=== PATIENT | female | born 1995 | race Caucasian/White ===

== ENCOUNTER 2018-01-17 11:10 | Emergency (ER) | payer MEDICAID ==
[~2018-01-17] VITALS: Ht 157.5 cm; Wt 56.2 kg
[2018-01-17 11:30] VITALS: PULSE 82
[2018-01-17 11:35] VITALS: PULSE 83
[2018-01-17 11:40] VITALS: PULSE 84
[2018-01-17 11:45] VITALS: PULSE 82
[2018-01-17 11:50] VITALS: PULSE 84
[2018-01-17 11:55] VITALS: PULSE 81
--- NOTE | 2018-01-17 12:14 | PD ---
HPI Chief Complaint decreased movement Date Seen: Jan 17, 2018 Time Seen: 12:00 Travel History International Travel<30 Days: No Contact w/Intl Traveler<30Days: No Known Affected Area: No History of Present Illness HPI Ms. Soliman is a 22-year-old year old at 34/0 weeks gestation with the past medical history of depression presenting to the OB ED today due to decreased movement. She gets her care at the health department in [place]. She states that for the past 3 days she has not felt the baby move as much. She has tried jumping and sugary drinks to no avail. However, when she was driving to the hospital and when she arrived at the OB ED she has felt the baby move a lot. No vaginal bleeding, no contractions, no dysuria, no chest pain, no shortness of breath, no bilateral calf pain. She is experiencing nausea. Weeks Gestation: 34 Para: 0 : 1 History Past Medical History Narrative Medical Asthma Major depressive disorder-has a history of cutting (self-harm), but last cut a year ago. Obstetric History Obstetric History Past Surgical History Surgical History: No Previous Surgery Family History Narrative Family History Mother-Graves' disease Sister with diabetes Father-unknown medical history Social History Narrative Social History Lives with her grandmother Recently moved to [place] from [place] Is a student at [employer] Denies alcohol or illicit drug use Quit cigarettes when she found out she was Alcohol Use: No Tobacco Use: No Substance Abuse: No Allergies-Medications (Allergen,Severity, Reaction): Coded Allergies: penicillin G (Verified Allergy, Unknown, 01/17/18) WAS GIVEN ALLERGY TEST WHICH RESULTED IN REACTION TO PEN g Narrative Medication Fluoxetine 10 mg daily Review of Systems General / Constitutional: No: Fever, Chills Eyes: No: Blurred Vision HENT: No: Headaches Cardiovascular: No: Chest Pain or Discomfort Respiratory: No: Short of Breath Gastrointestinal: Nausea, No: Vomiting Genitourinary: No: Dysuria Musculoskeletal: No: Weakness Skin: No Rash Physical Exam Vital Signs Date Time Temp Pulse Resp B/P (MAP) Pulse Ox O2 Delivery O2 Flow Rate FiO2 01/17/18 11:45 82 01/17/18 11:35 83 01/17/18 11:30 82 Narrative GENERAL: Well-nourished, well-developed patient. SKIN: Warm and dry. Numerous horizontal scars on bilateral forearms. HEAD: Normocephalic and atraumatic. EYES: No scleral icterus. No injection or drainage. ENT: No nasal drainage noted. Mucous membranes pink. Airway patent. NECK: Supple, trachea midline. No JVD. CARDIOVASCULAR: Regular rate and rhythm without murmurs, gallops, or rubs. RESPIRATORY: Breath sounds equal bilaterally. No accessory muscle use. BREASTS: Bilateral exam showed no masses , no retractions, no nipple discharge. ABDOMEN/GI: Abdomen soft, non-tender, bowel sounds present, no rebound, no guarding Gravid to 34 weeks size FHT's: Category: 1 Baseline: 130s Reactive: yes Variability: moderate Decels: none EXTREMITIES: No cyanosis or edema. BACK: Nontender without obvious deformity. No CVA tenderness. NEUROLOGICAL: Awake and alert. Motor and sensory grossly within normal limits. Five out of 5 muscle strength in all muscle groups. Normal speech. Data Data Vital Signs Reviewed: Yes Orders Orders Vital Signs (Adult) .ON ADMISSION (01/17/18 11:47) ^ Labor Status (01/17/18 11:47) ^ Non Stress Test (01/17/18 11:47) ^ Hydration (01/17/18 11:47) MDM Plan 22-year-old at 34/0 weeks gestation presenting due to decreased movement Issue has now resolved FHT shows category 1 tracing, reassuring -Advised patient about kick counts -Advised patient to return to ED if any further issues Diagnosis Diagnosis: Primary Impression: 34 weeks gestation of Disposition: DISCHARGE HOME Condition: Stable Lorri Fuentes MD R1 Jan 17, 2018 12:14
== END 2018-01-17 13:02 | disposition home or self-care (01) ==
LOC: HOBED 11:10
DX: O36.8130 Decreased fetal movements, third trimester, not applicable or unspecified (principal); Z3A.34 34 weeks gestation of pregnancy
CPT/HCPCS: 59025

== ENCOUNTER 2018-02-23 10:38 | Emergency (ER) | payer MEDICAID ==
[~2018-02-23] VITALS: Ht 160 cm; Wt 59.0 kg
[2018-02-23] MEDS ORDERED: SYMB80AE INH (11:01)
--- NOTE | 2018-02-23 11:58 | PD ---
HPI Chief Complaint Contractions Date Seen: Feb 23, 2018 Time Seen: 11:55 Travel History International Travel<30 Days: No Contact w/Intl Traveler<30Days: No Known Affected Area: No History of Present Illness HPI 22-year-old who is at 39 weeks 2 days comes in complaining of irregular occasional contractions. She states that they are mild to been occurring since early this morning and although they are noticeable they are not painful and not associated with any vaginal discharge or vaginal bleeding. Other than asthma she has no other complications and has been going weekly to her OB provider with a negative group B strep. No other issues during her . Weeks Gestation: 39 Para: 0 : 1 History Past Medical History Narrative Medical Asthma stable on medication Past Surgical History Surgical History: No Previous Surgery Family History Family History: Negative Social History Alcohol Use: No Tobacco Use: No Substance Abuse: No Allergies-Medications (Allergen,Severity, Reaction): Coded Allergies: penicillin G (Verified Allergy, Unknown, 01/17/18) WAS GIVEN ALLERGY TEST WHICH RESULTED IN REACTION TO PEN g Home Meds Reported Medications Budesonide-Formoterol Inh (Symbicort Inh) 80-4.5 Mcg/Act Aero, 1 PUFF INH Q12HR for Asthma Management, #1 INHALER 0 Refills 02/23/18 Review of Systems Except as stated in HPI: all other systems reviewed are Neg Physical Exam Narrative GENERAL: Well-nourished, well-developed patient. SKIN: Warm and dry. HEAD: Normocephalic and atraumatic. EYES: No scleral icterus. No injection or drainage. ENT: No nasal drainage noted. Mucous membranes pink. Airway patent. NECK: Supple, trachea midline. No JVD. CARDIOVASCULAR: Regular rate and rhythm without murmurs, gallops, or rubs. RESPIRATORY: Breath sounds equal bilaterally. No accessory muscle use. ABDOMEN/GI: Abdomen soft, non-tender, bowel sounds present, no rebound, no guarding Gravid to [36-] weeks size Fundal Height: [-] GENITOURINARY: External Genitalia: intact and normal in appearance BUS glands: [-] Normal Cervix: [-] Posterior Dilatation: [-] 1 Effacement: [-] 70 Station: [-] -1 Presentation: [-] Vertex Membranes: [intact or ruptured] intact Uterine Contractions: [-] Background irritability FHT's: Category: [-] 1 Baseline: [-] 140 Reactive: [-] Moderate Variability: [-] Moderate Decels: [-] Absent EXTREMITIES: No cyanosis or edema. BACK: Nontender without obvious deformity. No CVA tenderness. NEUROLOGICAL: Awake and alert. Motor and sensory grossly within normal limits. Five out of 5 muscle strength in all muscle groups. Normal speech. Data Data Vital Signs Reviewed: Yes Group B Strep: Negative MDM Medical Record Reviewed: Yes Plan 22-year-old at term gestation, not in labor with some uterine irritability without contractions Follow up with OB provider as scheduled next week Diagnosis Diagnosis: Primary Impression: 39 weeks gestation of Additional Impressions: Asthma complicating , antepartum False labor after 37 weeks of gestation without delivery Disposition: 01 DISCHARGE HOME Kaela Streeter MD Feb 23, 2018 11:58
== END 2018-02-23 12:13 | disposition home or self-care (01) ==
LOC: HOBED 10:38
DX: O47.1 False labor at or after 37 completed weeks of gestation (principal); O99.513 Diseases of the respiratory system complicating pregnancy, third trimester; J45.909 Unspecified asthma, uncomplicated; Z3A.39 39 weeks gestation of pregnancy
CPT/HCPCS: 59025

== ENCOUNTER 2018-02-23 21:57 | Emergency (ER) | payer MEDICAID ==
[~2018-02-23 21:57] MED LIST: SYMB80AE INH
--- NOTE | 2018-02-23 22:40 | PD ---
HPI Chief Complaint Vaginal bleeding Date Seen: Feb 23, 2018 Time Seen: 22:33 Travel History International Travel<30 Days: No Contact w/Intl Traveler<30Days: No Known Affected Area: No History of Present Illness HPI 22-year-old who is at 39-40 weeks gestation comes in complaining of vaginal bleeding. She was here earlier today with irregular contractions and cervical examination was done and she was a centimeter. After the exam patient states that she continued to have some vaginal bleeding and passed "chunks of tissue". Patient has been quite stressed as after she returned home her grandmother had a massive heart attack and they took her to the emergency room at [facility] where the patient had quite a bit of anxiety and copious crying episodes. She continued to have some irregular contractions but has had normal movement. Weeks Gestation: 39 Para: 0 : 1 History Past Medical History Narrative Medical Asthma Past Surgical History Surgical History: No Previous Surgery Family History Family History: Negative Social History Alcohol Use: No Tobacco Use: No Substance Abuse: No Allergies-Medications (Allergen,Severity, Reaction): Coded Allergies: penicillin G (Verified Allergy, Unknown, 01/17/18) WAS GIVEN ALLERGY TEST WHICH RESULTED IN REACTION TO PEN g Home Meds Reported Medications Budesonide-Formoterol Inh (Symbicort Inh) 80-4.5 Mcg/Act Aero, 1 PUFF INH Q12HR for Asthma Management, #1 INHALER 0 Refills 02/23/18 Review of Systems Except as stated in HPI: all other systems reviewed are Neg Physical Exam Narrative GENERAL: Well-nourished, well-developed patient. SKIN: Warm and dry. HEAD: Normocephalic and atraumatic. EYES: No scleral icterus. No injection or drainage. ENT: No nasal drainage noted. Mucous membranes pink. Airway patent. NECK: Supple, trachea midline. No JVD.. ABDOMEN/GI: Abdomen soft, non-tender, bowel sounds present, no rebound, no guarding Gravid to [37-] weeks size Fundal Height: [-] GENITOURINARY: Speculum exam was performed with some brown discharge noted combined with mucus. No active bleeding was noticeable. Patient states that this is the discharge that she is describing is bloody External Genitalia: intact and normal in appearance BUS glands: [-Normal] Cervix: [-Posterior] Dilatation: [-1] Effacement: [Thick-] Station: [High-] Presentation: [-Vertex] Membranes: [intact or ruptured] intact Uterine Contractions: [-] Irregular with background irritability FHT's: Category: [-] 1 Baseline: [-] 140 Reactive: [-] Moderate Variability: [-] Moderate Decels: [-] Absent EXTREMITIES: No cyanosis or edema. BACK: Nontender without obvious deformity. No CVA tenderness. NEUROLOGICAL: Awake and alert. Motor and sensory grossly within normal limits. Five out of 5 muscle strength in all muscle groups. Normal speech. Data Data Vital Signs Reviewed: Yes [facility] Medical Record Reviewed: Yes Plan 22-year-old at 39 weeks gestation Patient is not in labor and we discussed vaginal spotting and brown discharge that is associated with cervical exams No active bleeding is noted and cervix is unchanged from her previous exam earlier today Discharge home with follow-up to OB provider Diagnosis Diagnosis: Primary Impression: 39 weeks gestation of Additional Impression: Irregular uterine contractions Disposition: DISCHARGE HOME Kaela Streeter MD Feb 23, 2018 22:40
== END 2018-02-23 22:44 | disposition home or self-care (01) ==
LOC: HOBED 21:57
DX: O47.1 False labor at or after 37 completed weeks of gestation (principal); O46.93 Antepartum hemorrhage, unspecified, third trimester; Z3A.39 39 weeks gestation of pregnancy
CPT/HCPCS: 59025

== ENCOUNTER 2018-02-24 09:48 | Emergency (ER) | payer MEDICAID ==
--- NOTE | 2018-02-24 10:41 | PD ---
HPI Chief Complaint Bloody mucus discharge Date Seen: Feb 24, 2018 Time Seen: 10:33 Travel History International Travel<30 Days: No Contact w/Intl Traveler<30Days: No Known Affected Area: No History of Present Illness HPI Primigravida at 39+ weeks gestation who returns to the ED for continued bloody mucus discharge. She denies leakage of fluid. She reports good movement. She reports no increase in contraction intensity. Allergies-Medications (Allergen,Severity, Reaction): Coded Allergies: penicillin G (Verified Allergy, Unknown, 02/23/18) WAS GIVEN ALLERGY TEST WHICH RESULTED IN REACTION TO PEN g Home Meds Reported Medications Budesonide-Formoterol Inh (Symbicort Inh) 80-4.5 Mcg/Act Aero, 1 PUFF INH Q12HR for Asthma Management, #1 INHALER 0 Refills 02/23/18 Physical Exam Narrative GENERAL: Well-nourished, well-developed patient. SKIN: Warm and dry. HEAD: Normocephalic and atraumatic. EYES: No scleral icterus. No injection or drainage. ENT: No nasal drainage noted. Mucous membranes pink. Airway patent. NECK: Supple, trachea midline. No JVD. ABDOMEN/GI: Abdomen soft, non-tender, bowel sounds present, no rebound, no guarding GENITOURINARY: External Genitalia: intact and normal in appearance BUS glands: [Brown mucousy discharge without bright red bleeding in the vagina-] Cervix: [-] Dilatation: [1-] Effacement: [60-] Station: [--02] Presentation: [-] Membranes: [intact ] Uterine Contractions: [-irreg] FHT's: Category: [-1] Baseline: [-] Reactive: [-] Variability: [-] Decels: [-] EXTREMITIES: No cyanosis or edema. BACK: Nontender without obvious deformity. No CVA tenderness. NEUROLOGICAL: Awake and alert. Motor and sensory grossly within normal limits. Five out of 5 muscle strength in all muscle groups. Normal speech. Data Data Vital Signs Reviewed: Yes MDM Medical Record Reviewed: Yes Narrative Course / MDM Assessment: Bloody show associated with mild uterine irritability, category 1 heart rate Plan: Patient was educated that this was likely a normal transition in the stage of her . Precautions were reviewed for return. Diagnosis Diagnosis: Primary Impression: 39 weeks gestation of Additional Impression: Irregular uterine contractions Disposition: 01 DISCHARGE HOME Condition: Good Timbo Mayer MD Feb 24, 2018 10:41
== END 2018-02-24 10:48 | disposition home or self-care (01) ==
LOC: HOBED 09:48
DX: N85.8 Other specified noninflammatory disorders of uterus (principal); O26.93 Pregnancy related conditions, unspecified, third trimester; Z3A.39 39 weeks gestation of pregnancy
CPT/HCPCS: 59025

== ENCOUNTER → 2018-02-25 | Outpatient (CLI) | payer MEDICAID ==
[~2018-02-25] MED LIST changes: +IBUP-232 PO
--- NOTE | 2018-02-26 11:08 | RSPPFT ---
DATE OF PROCEDURE: 02/25/18 COMMENTS: Spirometry with FVC of 3.68, FEV1 of 3.1, FEV1/FVC ratio at 80%. Slow vital capacity is 100% of predicted. TLC is 95%. Diffusion capacity is normal. IMPRESSION: 1. No evidence of airways obstruction. 2. No evidence of airways restriction. 3. Normal diffusion capacity.
== END ==
LOC: HRSP 11:01
PROVIDERS: ATTEND Internal Medicine Sleep Medicine
DX: R06.89 Other abnormalities of breathing (principal)
CPT/HCPCS: 94060; 94726; 94729

== ENCOUNTER 2018-02-26 19:35 | Inpatient (IN) | payer MEDICAID ==
[~2018-02-26] VITALS: Ht 157.5 cm; Wt 59.0 kg
[2018-02-26] VITALS (16 sets, daily range): BP systolic 93–136; BP diastolic 36–77; PULSE 68–98; RESP 18; TEMP 97.3–98.4; O2SAT 100
[~2018-02-26 19:35] MED LIST changes: -IBUP-232 PO
--- NOTE | 2018-02-26 20:24 | HHI.HP ---
HPI Chief Complaint contractions Travel History International Travel<30 Days: No Contact w/Intl Traveler<30Days: No Known Affected Area: No History of Present Illness HPI 22 yo G1 with iup at 39w 5 d here for c/o contractions q 3 min all day long. + bloody show Good fm, neg lof. PNC w Dr. Miller Weeks Gestation: 39 Para: 0 : 1 History Past Medical History Narrative Medical Asthma, Depression with cutting of arms-previously on fluoxetine, seeing psych Past Surgical History Narrative Surgical tonsillectomy Family History Family History: Negative Social History Alcohol Use: No Tobacco Use: No (prior to ) Substance Abuse: No Allergies-Medications (Allergen,Severity, Reaction): Coded Allergies: penicillin G (Verified Allergy, Unknown, 02/23/18) WAS GIVEN ALLERGY TEST WHICH RESULTED IN REACTION TO PEN g Home Meds Reported Medications Budesonide-Formoterol Inh (Symbicort Inh) 80-4.5 Mcg/Act Aero, 1 PUFF INH Q12HR for Asthma Management, #1 INHALER 0 Refills 02/23/18 Review of Systems General / Constitutional: No: Fever, Weight Gain, Chills, Other Eyes: No: Diploplia, Blurred Vision, Visual changes, Pain, Photophobia HENT: No: Headaches, Vertigo, Lightheadedness Cardiovascular: No: Irregular Rhythm, Chest Pain or Discomfort, Palpitations, Tachycardia, Syncope, Varicosities, Edema, Cyanosis Respiratory: No: Cough, Short of Breath, Other Gastrointestinal: No: Nausea, Vomiting, Diarrhea Genitourinary: No: Decreased Urinary Output, Oliguria Musculoskeletal: No: Limited ROM, Weakness, Cramping, Edema, Pain Skin: No Rash, No Itching, No Dryness, No Lumps, No Change in Pigmentation, No Change in Nails, No Alopecia, No Lesions Neurologic: No: Weakness, Dizziness, Syncope, Focal Abnormalities, Coordination Problem, Headache, Slurred Speech, Seizures Psychiatric: No: Depression, Suicidal Ideations, Homicidal Ideation Endocrine: No: Heat Intolerance, Cold Intolerance, Polydipsia, Polyuria, Other Physical Exam Narrative GENERAL: Well-nourished, well-developed patient. SKIN: Warm and dry. HEAD: Normocephalic and atraumatic. EYES: No scleral icterus. No injection or drainage. ENT: No nasal drainage noted. Mucous membranes pink. Airway patent. NECK: Supple, trachea midline. No JVD. CARDIOVASCULAR: Regular rate and rhythm without murmurs, gallops, or rubs. RESPIRATORY: Breath sounds equal bilaterally. No accessory muscle use. ABDOMEN/GI: Abdomen soft, non-tender, bowel sounds present, no rebound, no guarding Gravid to 39 weeks size Fundal Height: [-] GENITOURINARY: External Genitalia: intact and normal in appearance BUS glands: [-] Presentation: ceph Membranes: [intac Uterine Contractions: q 3-5 min FHT's: Category: I Decels: [-] EXTREMITIES: No cyanosis or edema. BACK: Nontender without obvious deformity. No CVA tenderness. NEUROLOGICAL: Awake and alert. Motor and sensory grossly within normal limits. Five out of 5 muscle strength in all muscle groups. Normal speech. Caprini VTE Risk Assessment Caprini VTE Risk Assessment: No/Low Risk (score <= 1) Caprini Risk Assessment Model Point Value = 1 Point Value = 2 Point Value = 3 Point Value = 5 Age 41-60 Minor surgery BMI > 25 kg/m2 Swollen legs Varicose veins or History of unexplained or recurrent spontaneous Oral contraceptives or hormone replacement Sepsis (< 1 month) Serious lung disease, including pneumonia (< 1 month) Abnormal pulmonary function Acute myocardial infarction Congestive heart failure (< 1 month) History of inflammatory bowel disease Medical patient at bed rest Age 61-74 Arthroscopic surgery Major open surgery (> 45 min) Laparoscopic surgery (> 45 min) Malignancy Confined to bed (> 72 hours) Immobilizing plaster cast Central venous access Age >= 75 History of VTE Family history of VTE Factor V Leiden Prothrombin [id number] Lupus anticoagulant Anticardiolipin antibodies Elevated serum homocysteine Heparin-induced thrombocytopenia Other congenital or acquired thrombophilia Stroke (< 1 month) Elective arthroplasty Hip, pelvis, or leg fracture Acute spinal cord injury (< 1 month) Prophylaxis Regimen Total Risk Factor Score Risk Level Prophylaxis Regimen 0-1 Low Early ambulation 2 Moderate Order ONE of the following: *Sequential Compression Device (SCD) *Heparin 5000 units SQ BID 3-4 Higher Order ONE of the following medications: *Heparin 5000 units SQ TID *Enoxaparin/Lovenox 40 mg SQ daily (WT < 150 kg, CrCl > 30 mL/min) *Enoxaparin/Lovenox 30 mg SQ daily (WT < 150 kg, CrCl > 10-29 mL/min) *Enoxaparin/Lovenox 30 mg SQ BID (WT < 150 kg, CrCl > 30 mL/min) AND/OR *Sequential Compression Device (SCD) 5 or more Highest Order ONE of the following medications: *Heparin 5000 units SQ TID (Preferred with Epidurals) *Enoxaparin/Lovenox 40 mg SQ daily (WT < 150 kg, CrCl > 30 mL/min) *Enoxaparin/Lovenox 30 mg SQ daily (WT < 150 kg, CrCl > 10-29 mL/min) *Enoxaparin/Lovenox 30 mg SQ BID (WT < 150 kg, CrCl > 30 mL/min) AND *Sequential Compression Device (SCD) Data Data Vital Signs Reviewed: Yes Orders Orders Ob (2e) Additional Admit Info (02/26/18 20:08) Group B Strep: Negative Assessment/Plan Problem List: (1) Labor and delivery indication for care or intervention ICD Codes: O75.9 - Complication of labor and delivery, unspecified (2) with 39 completed weeks gestation ICD Codes: Z3A.39 - 39 weeks gestation of (3) Depression affecting ICD Codes: O99.340 - Other mental disorders complicating , unspecified trimester; F32.9 - Major depressive disorder, single episode, unspecified (4) Asthma affecting , antepartum ICD Codes: O99.519 - Diseases of the respiratory system complicating , unspecified trimester; J45.909 - Unspecified asthma, uncomplicated Assessment and Plan 22 yo G1 with iup at 39w5d being admitted in labor 1) Labor- anticipate . Pitocin if needed, epidural prn 2) H.o depression and scars cutting visible on both arms- states she has been doing well this . FOB not involved; has been doing better without this relationship. Previously on fluoxetine, reviewed risk of ppd, does not want to restart meds immediately pp. Rec eval 2 wk pp. 3) Asthma- inhaler prn. Greatly improved once she stopped smoking tob. 4) Fetus cephalic, Cat I tracing. Discharge Planning ppd2 Shikha Long MD February 26, 2018 20:24
[2018-02-26] MEDS: LACTATED RINGER'S 1000 ML INJ 1,000 ML IV SCH ×2 (20:31→23:51)
[2018-02-26] MEDS ORDERED: LACTATED RINGER'S 1000 ML INJ 1,000 ML IV PRN (20:33)
[2018-02-26] MEDS ORDERED: LIDOCAINE HCL 1% 50 ML VIAL I-DERMAL PRN (20:45)
[2018-02-26] MEDS ORDERED: OXYTOCIN 30 UNITS-500ML PREMIX 500 ML IV PRN (20:45)
[2018-02-26] MEDS ORDERED: CITRIC ACID-SODIUM CITRATE LIQ 30 ML UDC PO SCH (20:45)
[2018-02-26] MEDS ORDERED: OXYTOCIN 30 UNITS-500ML PREMIX 500 ML IV ONE (20:45)
[2018-02-26] MEDS ORDERED: LIDOCAINE HCL 1% 50 ML VIAL INFIL PRN (20:45)
[2018-02-26] MEDS ORDERED: SODIUM CHLORID 0.9% 500 ML INJ 500 ML IV PRN (20:45)
[2018-02-26] MEDS ORDERED: ONDANSETRON HCL 4 MG/2 ML VIAL IV PUSH PRN (20:45)
[2018-02-26 20:51] LABS: BASOPHIL % 0.4 % (0.0-2.0); EOSINOPHIL # 0.3 TH/MM3 (0-0.4); EOSINOPHIL % 2.6 % (0.0-4.0); HEMATOCRIT 38.5 % (35.0-46.0); HEMOGLOBIN 13.2 GM/DL (11.6-15.3); LYMPHOCYTE # 2.6 TH/MM3 (1.0-4.8); MEAN CORPUSCULAR HEMOGLOBIN 28.9 PG (27.0-34.0); MEAN CORPUSCULAR HGB CONC 34.3 % (32.0-36.0); MEAN PLATELET VOLUME 9.1 FL (7.0-11.0); MONO % 6.5 % (0.0-8.0); MONOCYTE # 0.8 TH/MM3 (0-0.9); NEUT % 68.5 % (16.0-70.0); PLATELET COUNT 236 TH/MM3 (150-450); RED BLOOD COUNT 4.59 MIL/MM3 (4.00-5.30); RED CELL DISTRIBUTION WIDTH 14.3 % (11.6-17.2); WHITE BLOOD COUNT 11.6 TH/MM3 (4.0-11.0)
[2018-02-26] MEDS ORDERED: SODIUM CHLOR 0.9% 1000 ML INJ 1,000 ML IV PRN (20:53)
[2018-02-26] MEDS ORDERED: ePHEDrine/NS 25 MG/5 ML SYRINGE ONE (20:58)
[2018-02-26] MEDS ORDERED: fentaNYL 2MCG-BUPIV 0.125% INJ 100 ML ONE (20:58)
[2018-02-26 21:01] LABS: BILIRUBIN, URINE NEG (NEG); BLOOD, URINE TRACE (NEG); GLUCOSE,URINE NEG (NEG); KETONE, URINE TRACE mg/dL (NEG); MUCUS URINE FEW /lpf (OCC); NITRITE,URINE NEG (NEG); PH, URINE 6.5 (5.0-8.5); SQUAMOUS EPITHELIAL CELL URINE 1 /hpf (0-5); URINE COLOR LIGHT-YELLOW (YELLW/STRAW); URINE LEUKOCYTE ESTERASE NEG (NEG)
[2018-02-26] MEDS ORDERED: LIDOCAINE HCL 1% PF 5 ML AMPULE ONE (21:05)
[2018-02-26] MEDS ORDERED: LIDOCAINE 1.5%/EPINEPHrine 1:200,000 PF SOLN 30 ML AMP ONE (21:05)
[2018-02-26] MEDS ORDERED: fentaNYL 2MCG-BUPIV 0.125% 100 ML EPIDURAL PRN (21:45)
[2018-02-26] MEDS ORDERED: fentaNYL 2MCG-BUPIV 0.125% 150 ML EPIDURAL PRN (21:45)
[2018-02-26] MEDS ORDERED: ePHEDrine/NS 25 MG/5 ML SYRINGE IV PUSH PRN (21:45)
[2018-02-26] MEDS ORDERED: NO SYSTEM NARCOTICS PRN (21:45)
[2018-02-26] MEDS ORDERED: DO NOT ADMINISTER ANTICOAGULANTS PRN (21:45)
[2018-02-27] VITALS (13 sets, daily range): BP systolic 88–119; BP diastolic 45–70; PULSE 63–93; RESP 18–20; TEMP 97.7–98.1; O2SAT 97
[2018-02-27] MEDS: MINERAL OIL 10 ML VIAL TOPICAL PRN ×2 (01:26→02:01)
--- NOTE | 2018-02-27 03:20 | PD.OB.DELI ---
Weeks gestation: 39 Pt started active labor?: Yes Medical induction of labor?: No Artificial rupture of membrane: No Anesthesia: Epidural Episiotomy: None Vaginal Delivery: Normal Presentation: Occiput anterior Delayed cord clamping (45 sec): Yes : Male Delivery date: February 27, 2018 Delivery time: 02:04 One Minute : 8 Five Minute : 9 Weight: 3015g Placenta: Spontaneous delivery Laceration: Vaginal laceration, 2 deg Repair: Chromic running (left labial, right sulcal and 2 degree perineal laceration. Each laceration repaired in running fashion with chromic. ) Estimated blood loss: 500ml Shikha Long MD February 27, 2018 03:20
[2018-02-27] MEDS ORDERED: BENZOCAINE 20% TOPICAL SPRAY 60 ML CAN TOPICAL PRN (03:30)
[2018-02-27] MEDS ORDERED: ZOLPIDEM TARTRATE 5 MG TAB PO PRN (03:30)
[2018-02-27] MEDS ORDERED: ALUMINUM/MAGNESIUM/SIMETH 30 ML CUP PO PRN (03:30)
[2018-02-27] MEDS ORDERED: OXYTOCIN 30 UNITS-500ML PREMIX 500 ML IV SCH (03:30)
[2018-02-27] MEDS ORDERED: ONDANSETRON ODT 4 MG TAB PO PRN (03:30)
[2018-02-27] MEDS ORDERED: SODIUM CHLORIDE 0.9% FLUSH 10 ML FLUSH IV FLUSH PRN (03:30)
[2018-02-27] MEDS: WITCH HAZEL 50%/GLYCERIN 12.5% 40 PAD JAR TOPICAL PRN (04:02)
[2018-02-27] MEDS: IBUPROFEN 800 MG TAB PO PRN ×3 (04:03→20:34)
[2018-02-27] MEDS ORDERED: IBUP-232 PO (07:23)
--- NOTE | 2018-02-27 07:23 | HHI.DCPOC ---
Discharge Care Plan Diagnosis: (1) Normal vaginal delivery (2) Depression affecting (3) with 39 completed weeks gestation (4) Asthma affecting , antepartum Your Health Problems Are: Vaginal delivery Report Symptoms to Your Doctor -Temperature above 100.5 degrees -Redness, of incision or excessive or foul smelling drainage -Unusual pain or calf pain -Increased vaginal bleeding -Painful or difficulty urinating -Feelings of extreme sadness or anxiety after 2 weeks Goals to Promote Your Health * To prevent worsening of your condition and complications * To maintain your health at the optimal level Directions to Meet Your Goals Take your medications as prescribed Follow your dietary instruction Follow activity as directed Ensure plenty of rest for recovery Drink fluids for hydration Keep your appointments as scheduled Take your immunizations and boosters as scheduled If your symptoms worsen call your PCP, if no PCP go to Urgent Care Center or Emergency Room Smoking is Dangerous to Your Health. Avoid second hand smoke Call the 24-hour crisis hotline for domestic abuse at Laron Miller MD February 27, 2018 07:23
--- NOTE | 2018-02-27 08:31 | HHI.OB ---
Subjective Post Day: 0 Remarks Doing well, pain controlled, breast-feeding, no complaints. VB less than menses , voiding, ambulating without difficulty. Objective Vitals/I&O Vital Signs Date Time Temp Pulse Resp B/P (MAP) Pulse Ox O2 Delivery O2 Flow Rate FiO2 02/27/18 04:36 97.9 76 18 119/70 (86) 02/27/18 04:03 18 02/27/18 04:00 87 111/58 (75) 02/27/18 03:30 93 117/62 (80) 02/27/18 03:30 20 02/27/18 03:03 98.1 18 02/27/18 03:00 89 118/68 (85) 02/27/18 02:54 89 112/67 (82) 02/27/18 02:53 18 02/27/18 00:34 20 02/27/18 00:30 70 106/65 (79) 02/27/18 00:00 88 117/65 (82) 02/26/18 23:30 77 121/77 (92) 02/26/18 23:25 18 02/26/18 23:00 68 107/66 (80) 02/26/18 22:31 85 93/36 (55) 02/26/18 22:27 97.3 02/26/18 22:27 18 02/26/18 22:00 89 115/74 (88) 02/26/18 21:45 80 123/71 (88) 02/26/18 21:45 100 02/26/18 21:40 100 02/26/18 21:40 136/73 (94) 02/26/18 21:40 98 02/26/18 21:35 120/72 (88) 100 02/26/18 21:35 92 02/26/18 21:30 100 02/26/18 21:30 123/69 (87) 02/26/18 21:30 85 02/26/18 21:25 94 100 02/26/18 21:25 92 120/72 (88) 02/26/18 21:20 122/72 (89) 02/26/18 21:20 100 02/26/18 21:20 92 02/26/18 21:15 85 119/74 (89) 100 02/26/18 21:10 84 115/64 (81) 02/26/18 21:10 100 02/26/18 21:09 94 106/64 (78) 02/26/18 20:00 98.4 Objective Remarks GENERAL: Well-nourished, well-developed patient. CARDIOVASCULAR: Regular rate and rhythm without murmurs, gallops, or rubs. RESPIRATORY: Breath sounds equal bilaterally. No accessory muscle use. ABDOMEN/GI: Abdomen soft, non-tender. Fundus: Firm, non-tender at umbilicus. GENITOURINARY: Light to moderate bleeding. EXTREMITIES: No cyanosis or edema, non-tender, without signs of DVT. Medications and IVs Current Medications Medications (Trade) Dose Ordered Sig/Zechariah Route Start Time Stop Time Status Last Admin (NS Flush) 2 ml BID IV FLUSH 02/27/18 09:00 (NS Flush) 2 ml UNSCH PRN IV FLUSH 02/27/18 03:30 Oxytocin 500 ml @ 100 mls/hr CONTINUOUS IV 02/27/18 03:30 02/27/18 08:29 (Tylenol) 650 mg Q4H PRN PO 02/27/18 03:30 (Motrin) 800 mg Q8H PRN PO 02/27/18 03:30 02/27/18 04:03 (Americaine 20% Top Spr) 1 spray Q4H PRN TOPICAL 02/27/18 03:30 02/27/18 04:02 (Tucks Pads) 1 applic QID PRN TOPICAL 02/27/18 03:30 02/27/18 04:02 (Emani-Colace) 2 tab Q12H PRN PO 02/27/18 03:30 (Ambien) 5 mg HS PRN PO 02/27/18 03:30 (M-M-R Ii Inj) 0.5 ml ONCE ONCE SQ 02/27/18 16:00 02/27/18 16:01 (Boostrix Inj) 0.5 ml ONCE ONCE IM 02/27/18 16:00 02/27/18 16:01 (Mag-Al Plus Susp Liq) 15 ml Q8H PRN PO 02/27/18 03:30 (Zofran Odt) 4 mg Q6H PRN PO 02/27/18 03:30 Assessment/Plan Problem List: (1) Labor and delivery indication for care or intervention ICD Codes: O75.9 - Complication of labor and delivery, unspecified (2) with 39 completed weeks gestation ICD Codes: Z3A.39 - 39 weeks gestation of (3) Depression affecting ICD Codes: O99.340 - Other mental disorders complicating , unspecified trimester; F32.9 - Major depressive disorder, single episode, unspecified (4) Asthma affecting , antepartum ICD Codes: O99.519 - Diseases of the respiratory system complicating , unspecified trimester; J45.909 - Unspecified asthma, uncomplicated Assessment and Plan 22 yo s/p at 39w 1) PPD #0: AF, VSS, anticipate d/c home in next 48hrs, BPs a low but relatively normal for her, not tachycardic or symptomatic. - Male, unsure if she desires circ, 2) H.o depression: discussed sn/sx of depression, will FU in office in 2 weeks. 3) Asthma- inhaler prn. Greatly improved once she stopped smoking tob. Laron Miller MD February 27, 2018 08:31
[2018-02-27] MEDS: ACETAMINOPHEN 325 MG TAB PO PRN ×2 (08:53→18:22)
[2018-02-27] MEDS: DOCUSATE SODIUM 50 MG/SENNA 8.6 MG TAB PO PRN ×2 (08:53→20:34)
[2018-02-27] MEDS ORDERED: SODIUM CHLORIDE 0.9% FLUSH 10 ML FLUSH IV FLUSH SCH (09:00)
[2018-02-27] MEDS ORDERED: MEASLES, MUMPS, RUBELLA VACCINE 0.5 ML VIAL SQ ONE (16:00)
[2018-02-27] MEDS ORDERED: DIPHTH/TETANUS/ACEL PERTUSSIS (BOOSTER) 0.5 ML VIAL/PFS IM ONE (16:00)
[2018-02-28] MEDS: IBUPROFEN 800 MG TAB PO PRN ×2 (04:53→13:42)
[2018-02-28 08:00] VITALS: BP 103/58; PULSE 80; RESP 16
[2018-02-28] MEDS: WITCH HAZEL 50%/GLYCERIN 12.5% 40 PAD JAR TOPICAL PRN (09:53)
--- NOTE | 2018-02-28 12:55 | HHI.OB ---
Subjective Post Day: 1 Remarks doing well with no dysphoria or complaints eager for discharge as she has appointment for in am with peds in [facility] Objective Vitals/I&O Vital Signs Date Time Temp Pulse Resp B/P (MAP) Pulse Ox O2 Delivery O2 Flow Rate FiO2 02/28/18 08:00 80 16 103/58 (73) 02/27/18 20:00 97.7 63 18 114/59 (77) 97 Objective Remarks GENERAL: Well-nourished, well-developed patient. CARDIOVASCULAR: Regular rate and rhythm without murmurs, gallops, or rubs. RESPIRATORY: Breath sounds equal bilaterally. No accessory muscle use. ABDOMEN/GI: Abdomen soft, non-tender. Fundus: Firm, non-tender at umbilicus. GENITOURINARY: Light to moderate bleeding. EXTREMITIES: No cyanosis or edema, non-tender, without signs of DVT. Medications and IVs Current Medications Medications (Trade) Dose Ordered Sig/Zechariah Route Start Time Stop Time Status Last Admin (NS Flush) 2 ml BID IV FLUSH 02/27/18 09:00 (NS Flush) 2 ml UNSCH PRN IV FLUSH 02/27/18 03:30 (Tylenol) 650 mg Q4H PRN PO 02/27/18 03:30 02/27/18 18:22 (Motrin) 800 mg Q8H PRN PO 02/27/18 03:30 02/28/18 04:53 (Americaine 20% Top Spr) 1 spray Q4H PRN TOPICAL 02/27/18 03:30 02/27/18 04:02 (Tucks Pads) 1 applic QID PRN TOPICAL 02/27/18 03:30 02/28/18 09:53 (Emani-Colace) 2 tab Q12H PRN PO 02/27/18 03:30 02/27/18 20:34 (Ambien) 5 mg HS PRN PO 02/27/18 03:30 (Mag-Al Plus Susp Liq) 15 ml Q8H PRN PO 02/27/18 03:30 (Zofran Odt) 4 mg Q6H PRN PO 02/27/18 03:30 Assessment/Plan Problem List: (1) Labor and delivery indication for care or intervention ICD Codes: O75.9 - Complication of labor and delivery, unspecified (2) with 39 completed weeks gestation ICD Codes: Z3A.39 - 39 weeks gestation of (3) Depression affecting ICD Codes: O99.340 - Other mental disorders complicating , unspecified trimester; F32.9 - Major depressive disorder, single episode, unspecified (4) Asthma affecting , antepartum ICD Codes: O99.519 - Diseases of the respiratory system complicating , unspecified trimester; J45.909 - Unspecified asthma, uncomplicated Assessment and Plan 22 yo s/p at 39w 1) PPD #0: AF, VSS, anticipate d/c home in next 48hrs, BPs a low but relatively normal for her, not tachycardic or symptomatic. - Male, unsure if she desires circ, 2) H.o depression: discussed sn/sx of depression, will FU in office in 2 weeks. 3) Asthma- inhaler prn. Greatly improved once she stopped smoking tob. PPD 1 Although case management suggested psych consult we are fine with follow up in our office in two weeks and healthy start to reach out in week one Jeniffer Dwyer MD February 28, 2018 12:55
== END 2018-02-28 18:00 | disposition home or self-care (01) | DRG 775 ==
LOC: HOBED 19:35 → H2EA 20:08 → H1EA 02-27 04:24
PROVIDERS: ADMIT Obstetrics & Gynecology; ATTEND Obstetrics & Gynecology
PROC: 00HU33Z Insertion of Infusion Device into Spinal Canal, Percutaneous Approach (ICD-10-PCS; 2018-02-26)
PROC: 3E0R3BZ Introduction of Anesthetic Agent into Spinal Canal, Percutaneous Approach (ICD-10-PCS; 2018-02-26)
PROC: 10E0XZZ Delivery of Products of Conception, External Approach (ICD-10-PCS; principal; 2018-02-27)
PROC: 0KQM0ZZ Repair Perineum Muscle, Open Approach (ICD-10-PCS; 2018-02-27)
DX: O70.1 Second degree perineal laceration during delivery (principal); Z37.0 Single live birth; O99.344 Other mental disorders complicating childbirth; F32.9 Major depressive disorder, single episode, unspecified; O99.52 Diseases of the respiratory system complicating childbirth; J45.909 Unspecified asthma, uncomplicated; Z3A.39 39 weeks gestation of pregnancy; Z23 Encounter for immunization; Z87.891 Personal history of nicotine dependence
CPT/HCPCS: 59025; 80307; 81001; 85025; 86900; 86901; 87641; 94060; 94726; 94729; G0481; J2590; J7120